=== PATIENT | female | born 1975 | race Caucasian/White ===

== ENCOUNTER 2020-10-24 13:02 | Outpatient (REF) | payer MEDICAID, SELFPAY ==
--- NOTE | 2020-10-24 13:06 | MM_ITS ---
EXAMINATION: MM SCREENING DIGITAL BREAST TOMOSYNTHESIS, BILATERAL CLINICAL INFORMATION: Screening. Asymptomatic. The lifetime risk of breast cancer based on the Tyrer-Cuzick Model is 12%. COMPARISON: Mammography: 03/06/2016, 02/12/2015 TECHNIQUE: Digital breast tomosynthesis is performed in both the craniocaudal and mediolateral oblique views along with computer-aided detection (CAD). Synthesized 2D images are generated from the tomosynthesis. FINDINGS: There are scattered areas of fibroglandular density (ACR BI-RADS breast composition Category b). There is no interval mass or architectural abnormality or developing density. Left breast has no abnormal calcifications. The bilateral axilla and skin contours are unremarkable. The right breast has new grouped calcifications, 4-8 in number, anterior 9:00 position. Patient will be recalled to fully characterize. MM/MM tomosynthesis screening BI IMPRESSION: 1. Right: New calcifications anterior 9:00 position. 2. Left: No mammographic evidence of malignancy. ASSESSMENT: BI-RADS 0: Incomplete - Need Additional Imaging Evaluation RECOMMENDATION: 1. Additional views of the right breast (magnification CC, magnification ML). 2. Radiology department staff will contact the patient for additional imaging. This patient's information was entered into a reminder system with a target due date for their next mammogram.
== END 2020-10-24 13:03 | disposition home or self-care (01) ==
LOC: HO.MAMMO 13:02
PROVIDERS: PCP Pediatrics; Visit Provider Pediatrics
DX: Z12.31 Encounter for screening mammogram for malignant neoplasm of breast (principal)
CPT/HCPCS: 77063; 77067

== ENCOUNTER 2020-11-22 15:15 | Outpatient (REF) | payer MEDICAID, SELFPAY ==
--- NOTE | 2020-11-22 | US_ITS ---
EXAMINATION: US EXTRACRANIAL CAROTID DUPLEX, BILATERAL CLINICAL INFORMATION: This is a 45-year-old female with amaurosis fugax on the right. Carotid artery disease. COMPARISON: None TECHNIQUE: Real-time ultrasound and Doppler techniques (integrating B-mode 2-D vascular images, Doppler spectral analysis and color-flow Doppler imaging) were utilized to interrogate the extracranial carotid arteries, the vertebral arteries and proximal subclavian arteries bilaterally. The degree of stenosis is determined by criteria similar to NASCET. FINDINGS: Right Side: 1. There is no atherosclerotic plaque seen in the bifurcation/proximal ICA region. 2. The common carotid artery PSV proximally is 151 cm/s and distally 113 cm/s. 3. The proximal internal carotid artery velocities are 113 cm/s systolic and 36 cm/s diastolic. 4. The proximal external carotid artery PSV is 110 cm/s. 5. The vertebral artery shows antegrade flow. 6. The subclavian artery waveforms are normal. Left Side: 1. There is no atherosclerotic plaque seen in the bifurcation/proximal ICA region. 2. The common carotid artery PSV proximally is 131 cm/s and distally 116 cm/s. 3. The proximal internal carotid artery velocities are 95 cm/s systolic and 29 cm/s diastolic. 4. The proximal external carotid artery PSV is 108 cm/s. 5. The vertebral artery shows antegrade flow. 6. The subclavian artery waveforms are normal. US/US carotid duplex BI IMPRESSION: 1. RIGHT: Normal right internal carotid artery without atherosclerotic plaque or hemodynamically significant stenosis. 2. LEFT: Normal left internal carotid artery without atherosclerotic plaque or hemodynamically significant stenosis.
== END 2020-11-22 15:16 | disposition home or self-care (01) ==
LOC: HO.US 15:15
PROVIDERS: PCP Pediatrics; Visit Provider Pediatrics
DX: G45.3 Amaurosis fugax (principal)
CPT/HCPCS: 93880

== ENCOUNTER 2020-12-08 09:50 | Outpatient (REF) | payer MEDICAID, SELFPAY ==
[2020-12-08 10:14] LABS: MANUAL DIFF FLAG NO
[2020-12-08 10:16] LABS: Basophils Percent Auto 0.6 % (0-2); Eosinophils Absolute Auto 0.3 X10*3/uL (0.0-0.4); Eosinophils Percent Auto 5.1 % (0-4); Hematocrit 28.8 % (37-47); Hemoglobin 8.4 g/dl (12.0-16.0); Imm Gran Abs Auto 0.01 X10*3/uL (0.00-0.03); Imm Gran Pct Auto 0.2 % (0.0-0.4); Lymphocytes Absolute Auto 1.2 X10*3/uL (1.2-4.9); Lymphocytes Percent Auto 23.9 % (20-40); Mean Corpuscular HGB Conc 29.2 g/dl (31.0-35.0); Mean Corpuscular Hemoglobin 21.6 pg (27.0-33.0); Mean Corpuscular Volume 74.2 fL (80-98); Mean Platelet Volume 10.7 fL (9.4-12.3); Monocytes Absolute Auto 0.4 X10*3/uL (0.1-1.2); Monocytes Percent Auto 8.4 % (2-11); Neutrophils Absolute Auto 3.2 X10*3/uL (2.0-8.3); Neutrophils Percent Auto 61.8 % (45-73); Platelet Count 367 X10*3/uL (160-400); Red Blood Count 3.88 X10*6/uL (4.20-5.50); Red Cell Distribution Width 17.9 % (11.0-16.0); White Blood Count 5.1 X10*3/uL (4.8-10.8)
[2020-12-08 10:43] LABS: Alanine Aminotransferase 37 U/L (0-31); Albumin Level 4.1 g/dL (3.5-5.0); Alkaline Phosphatase 94 U/L (39-117); Anion Gap 8 (12-20); Aspartate Amino Transferase 27 U/L (5-31); Bilirubin Direct < 0.2 mg/dL (0.0-0.5); Bilirubin Total 0.2 mg/dL (0.0-1.0); Blood Urea Nitrogen 14 mg/dL (9-16); Calcium 8.9 mg/dL (8.4-10.2); Carbon Dioxide 28 mmol/L (22-29); Chloride 107 mmol/L (96-108); Estimated Glomerular Filt Rate > 60; Glucose Random 82 mg/dL (60-115); Potassium 4.2 mmol/L (3.3-5.1); Sodium 139 mmol/L (135-145); Total Protein 7.2 g/dL (6.5-8.0)
[2020-12-08 10:56] LABS: Erythrocyte Sedimentation Rate 23 MM/HR (0-20)
[2020-12-08 11:03] LABS: TSH reflex Free T4 0.46 uIU/mL (0.32-4.0); Vitamin D 25-OH Total 29.7 ng/mL (>30)
[2020-12-11 20:17] LABS: Anti Nuclear Antibody Screen NEGATIVE (NEGATIVE)
== END 2020-12-08 09:51 | disposition home or self-care (01) ==
LOC: HO.LAB 09:50
PROVIDERS: Visit Provider Pediatrics
DX: E55.9 Vitamin D deficiency, unspecified (principal); R42 Dizziness and giddiness; G45.3 Amaurosis fugax
CPT/HCPCS: 36415; 80053; 80076; 82248; 82306; 84443; 85025; 85652; 86038; 86039

== ENCOUNTER 2020-12-12 14:27 | Outpatient (REF) | payer MEDICAID, SELFPAY ==
--- NOTE | 2020-12-12 | MM_ITS ---
EXAMINATION: MM DIAGNOSTIC DIGITAL MAMMOGRAPHY, RIGHT CLINICAL INFORMATION: Calcifications. COMPARISON: Mammography: 10/24/2020 and studies dating back to 02/12/2015. TECHNIQUE: Digital mammography is performed in the following views: Spot magnification views of the right breast in craniocaudal and 90 degree mediolateral views. FINDINGS: There are scattered areas of fibroglandular density (ACR BI-RADS breast composition Category b). The calcifications appear to represent skin calcifications some having lucent centers and demonstrating on tomosynthesis views to lie about the skin surface. Results are provided to the patient at time of visit by the technologist. MM/MM added views RT IMPRESSION: Right breast calcifications appear to represent skin calcifications. ASSESSMENT: BI-RADS 2: Benign. RECOMMENDATION: Routine annual mammography screening due in 12 months. This patient's information was entered into a reminder system with a target due date for their next mammogram.
== END 2020-12-12 14:28 | disposition home or self-care (01) ==
LOC: HO.MAMMO 14:27
PROVIDERS: Visit Provider Pediatrics
DX: R92.1 Mammographic calcification found on diagnostic imaging of breast (principal)
CPT/HCPCS: 77065

== ENCOUNTER 2021-07-05 08:46 | Outpatient (REF) | payer MEDICAID, SELFPAY ==
--- NOTE | ~2021-07-05 | US_ITS ---
EXAMINATION: US PELVIS CLINICAL INFORMATION: Excessive and frequent menstruation COMPARISON: Previous pelvic ultrasound November 2011 TECHNIQUE: Ultrasound of the pelvis is performed using both transabdominal and transvaginal transducers along with Doppler. Transvaginal imaging is performed due to inadequate visualization transabdominally. FINDINGS: The uterus is anteverted and measures 7.4 x 4.2 x 6.6 cm in dimension. There are 2 hypoechoic lesions in the anterior body of the uterus suggestive of small fibroids measuring 0.9 x 1 x 1.3 cm and 0.7 x 0.6 x 0.6 cm. Endometrium is slightly thickened and heterogeneous appearing. Endometrial thickness measures 1.7 cm. There are nabothian cysts in the cervix. The right ovary is upper normal in size and measures 2.4 x 3.4 x 3.4 cm. There is a minimally complex cyst in the right ovary measuring 2.9 x 2 x 2.5 cm with thickened wall and single slightly thickened septation. Left ovary is normal and measures 3.1 x 2.5 x 2.7 cm. There is no fluid in the pelvis. US/US pelvic and transvaginal IMPRESSION: Slightly thickened heterogeneous-appearing endometrium. Endometrial thickness measures 1.7 cm. Small uterine fibroids. 2.9 x 2 x 2.5 cm complex right ovarian cyst.
== END 2021-07-05 08:47 | disposition home or self-care (01) ==
LOC: HO.HMGCX 08:46
PROVIDERS: PCP Pediatrics; Visit Provider Advanced Practice Midwife
DX: N92.0 Excessive and frequent menstruation with regular cycle (principal)
CPT/HCPCS: 76830; 76856

== ENCOUNTER 2022-01-20 15:18 | Outpatient (REF) | payer MEDICAID, SELFPAY ==
--- NOTE | ~2022-01-20 | MM_ITS ---
EXAMINATION: MM SCREENING DIGITAL BREAST TOMOSYNTHESIS, BILATERAL CLINICAL INFORMATION: Screening. Asymptomatic. The lifetime risk of breast cancer based on the Tyrer-Cuzick Model is 15%. COMPARISON: Mammography: 12/12/2020, 10/24/2020, 03/06/2016 TECHNIQUE: Digital breast tomosynthesis is performed in both the craniocaudal and mediolateral oblique views along with computer-aided detection (CAD). Synthesized 2D images are generated from the tomosynthesis. FINDINGS: There are scattered areas of fibroglandular density (ACR BI-RADS breast composition Category b). There are no significant masses, abnormal calcifications, or other abnormalities. Parenchymal pattern is similar to prior studies. There is no developing density or architectural abnormality. The axilla and skin contours are unremarkable. No significant changes. MM/MM tomosynthesis screening BI IMPRESSION: No mammographic evidence of malignancy. ASSESSMENT: BI-RADS 1: Negative RECOMMENDATION: Routine annual mammography screening. This patient's information was entered into a reminder system with a target due date for their next mammogram.
== END 2022-01-20 15:19 | disposition home or self-care (01) ==
LOC: HO.MAMMO 15:18
PROVIDERS: Visit Provider Pediatrics
DX: Z12.31 Encounter for screening mammogram for malignant neoplasm of breast (principal)
CPT/HCPCS: 77063; 77067

== ENCOUNTER 2023-01-30 12:28 | Outpatient (REF) | payer MEDICAID, SELFPAY ==
--- NOTE | ~2023-01-30 | MM_ITS ---
EXAMINATION: MM SCREENING DIGITAL BREAST TOMOSYNTHESIS, BILATERAL CLINICAL INFORMATION: Screening. Asymptomatic. The lifetime risk of breast cancer based on the Tyrer-Cuzick Model is 19%. COMPARISON: Prior mammography exams, most recent 01/20/2022 TECHNIQUE: Digital breast tomosynthesis is performed in both the craniocaudal and mediolateral oblique views along with computer-aided detection (CAD). Synthesized 2D images are generated from the tomosynthesis. FINDINGS: There are scattered areas of fibroglandular density (ACR BI-RADS breast composition Category b). Parenchymal pattern is similar to prior studies and there is no interval mass or architectural abnormality or developing density. A few tightly grouped calcifications mid anterior outer right breast are similar to recent studies. No interval suspicious calcifications. The axilla and skin contours are unremarkable. No significant changes. MM/MM tomosynthesis screening BI IMPRESSION: No mammographic evidence of malignancy. ASSESSMENT: BI-RADS 2: Benign RECOMMENDATION: Routine annual mammography screening. This patient's information was entered into a reminder system with a target due date for their next mammogram.
== END 2023-01-30 12:29 | disposition home or self-care (01) ==
LOC: HO.MAMMO 12:28
PROVIDERS: PCP Pediatrics; Visit Provider Pediatrics
DX: Z12.31 Encounter for screening mammogram for malignant neoplasm of breast (principal)
CPT/HCPCS: 77063; 77067

== ENCOUNTER 2023-05-20 08:51 | Outpatient (REF) | payer MEDICAID, SELFPAY ==
--- NOTE | ~2023-05-20 | XR_ITS ---
EXAMINATION: XR SHOULDER, LEFT CLINICAL INFORMATION: Acute pain in the left shoulder. COMPARISON: None available. TECHNIQUE: Four views of the left shoulder. FINDINGS: Minimal inferior subluxation of the humeral head with respect to the glenoid. No acute fractures. Normal appearance of the acromioclavicular joint and coracoid process. No suspicious soft tissue calcifications. Included portions of the left-sided ribs and lungs are within normal limits. XR/XR shoulder LT min 2V IMPRESSION: Query faint inferior subluxation of the humeral head which could be related with overlying fluid or edema. Additional evaluation with an ultrasound or MRI could be obtained as indicated.
== END 2023-05-20 08:52 | disposition home or self-care (01) ==
LOC: HO.XRAY 08:51
PROVIDERS: PCP Family Medicine; Visit Provider Family Medicine
DX: M25.512 Pain in left shoulder (principal)
CPT/HCPCS: 73030

== ENCOUNTER 2023-06-25 08:36 | Outpatient (REF) | payer MEDICAID, SELFPAY ==
--- NOTE | ~2023-06-25 | XR_ITS ---
EXAMINATION: XR FOOT, RIGHT CLINICAL INFORMATION: Chronic heel pain COMPARISON: None TECHNIQUE: 3 views of the foot FINDINGS: No fracture or dislocation. Joint spaces are maintained. Plantar calcaneal spurring and small Achilles tendon enthesophyte. No joint effusion. Soft tissues are unremarkable. XR/XR foot RT min 3V IMPRESSION: Plantar calcaneal spurring and small Achilles tendon enthesophyte.
== END 2023-06-25 08:37 | disposition home or self-care (01) ==
LOC: HO.XRAY 08:36
PROVIDERS: PCP Pediatrics; Visit Provider Pediatrics
DX: Z13.89 Encounter for screening for other disorder (principal)
CPT/HCPCS: 73630

== ENCOUNTER 2023-11-04 07:34 | Outpatient (REF) | payer MEDICAID, SELFPAY ==
[2023-11-06 21:28] LABS: TS Negative Control Passed; TS Panel A 0; TS Panel B 0; TS Positive Control Passed; TSpotTB Negative (Negative)
== END 2023-11-04 07:35 | disposition home or self-care (01) ==
LOC: HO.LAB 07:34
PROVIDERS: PCP Pediatrics; Visit Provider Family Medicine
DX: Z11.1 Encounter for screening for respiratory tuberculosis (principal)
CPT/HCPCS: 36415; 86481

== ENCOUNTER 2023-11-19 14:59 | Outpatient (REF) | payer MEDICAID, SELFPAY | END 2023-11-19 15:00 | disposition home or self-care (01) | LOC: HO.CHCLNP 14:59 | PROVIDERS: Visit Provider Internal Medicine | DX: K21.9 Gastro-esophageal reflux disease without esophagitis (principal) | CPT/HCPCS: 87338 ==

== ENCOUNTER 2024-02-05 08:41 | Outpatient (REF) | payer MEDICAID, SELFPAY | END 2024-02-05 08:42 | disposition home or self-care (01) | LOC: HO.MAMMO 08:41 | PROVIDERS: PCP Pediatrics; Visit Provider Pediatrics | DX: Z12.31 Encounter for screening mammogram for malignant neoplasm of breast (principal) | CPT/HCPCS: 77063; 77067 ==

== ENCOUNTER → 2024-02-05 09:00 | Outpatient (BNV) | payer MEDICAID, SELFPAY | PROVIDERS: PCP Pediatrics; Visit Provider Radiology Diagnostic Radiology | DX: Z12.31 Encounter for screening mammogram for malignant neoplasm of breast (principal) | CPT/HCPCS: 77063; 77067 ==

== ENCOUNTER 2024-04-29 12:07 | Outpatient (REF) | payer MEDICAID, SELFPAY ==
[2024-04-29 15:02] LABS: Vitamin D 25-OH Total 42.9 ng/mL (>30)
== END 2024-04-29 12:08 | disposition home or self-care (01) ==
LOC: HO.CHCLDS 12:07
PROVIDERS: Visit Provider Pediatrics
DX: E55.9 Vitamin D deficiency, unspecified (principal)
CPT/HCPCS: 36415; 82306